=== PATIENT | male | born 1940 | race Caucasian/White ===

== ENCOUNTER → 2019-05-13 | Day surgery (SDC) | payer MEDICARE ==
[~2019-05-13] MED LIST: ACETAMINOPHEN 1000 MG/100 ML IV ONE; BACITRACIN 50,000 UNIT VIAL ONE; CEFTRIAXONE SOD 1 GM/NS 50 ML 50 ML IV ONE; DEXAMETHASONE SOD PHOS INJ 4 MG/ML VIAL ONE; EPHEDRINE SULFATE INJ 50 MG/10 ML SYR ONE; FENTANYL CITRATE/PF 100MCG/2 ML INJ ONE; LIDOCAINE HCL 1% LOCAL INJ 20 ML VIAL ONE; LIDOCAINE HCL 2% LOCAL INJ 5 ML SDV VIAL INJ ONE; LISINOPRIL10 MG PO; MULTIVITAMINS1 EAC8 PO; ONDANSETRON HCL INJ 2MG/ML 2ML 2 MG/ML VIAL ONE; PROPOFOL IV EMULSION 10 MG/ML 20 ML VIAL ONE; SEVOFLURANE INHAL SOLN 250 ML PEN BTL ONE
[2019-05-13 12:55] VITALS: BP 148/78
--- NOTE | 2019-05-14 11:11 | Operative Report ---
DATE OF PROCEDURE: 05/13/2019 SURGEON: Juan Antonio Sims MD PREOPERATIVE DIAGNOSIS: Organic erectile dysfunction. POSTOPERATIVE DIAGNOSIS: Organic erectile dysfunction. OPERATIVE PROCEDURE PERFORMED: Placement of inflatable penile prosthesis. ANESTHESIA: General anesthesia. ESTIMATED BLOOD LOSS: Minimal. INDICATIONS: Mr. Juan Stovall is a 79-year-old gentleman with a long history of erectile dysfunction, which has failed all conservative measures. He now presents for definitive surgical management of his problem. PROCEDURE IN DETAIL: The patient was brought in the operating room, placed in supine position. After administration of general anesthesia, he was prepped and draped in usual sterile fashion. A Hernandez catheter was placed and the balloon inflated. After the bladder was drained, the catheter was clamped for the remainder of the procedure. A penoscrotal incision was made in the midline and dissection was carried out to the cavernosal body. Great care was taken to avoid injury to the urethra. First the cavernosal body on the left side was encountered and incised in the midline and PDS stay sutures were placed on both sides. The corporal body was then dilated proximally and distally and measured 23 cm in total length. A similar procedure was performed on the patient's right side. In the process of the dissection, an incision approximately 2.5 cm in length was made in the skin along the right penoscrotal region. This was then closed in layers internally and then externally with interrupted nylon sutures. The corporal body was then incised again after PDS stitches were placed and dilated proximally and distally. This measured 22.5 cm on this side. A decision was made to place a 21 cm CX cylinder with 2 cm RTE on both sides. This was placed in the standard fashion. A Jameson needle was used to bring the distal end of the prosthesis to the distal most portion of the penis. It appeared to be a good fit. The stay sutures were then closed in a horizontal manner and a subdartos pocket was created in the scrotum to the right of midline. The pump was placed in this position such that the button was anteriorly placed. All the components were copiously irrigated with antibiotic saline prior to placement. A horizontal incision was then made in the region of the right groin and dissection was carried down to the layers of the fascia. The skin and soft tissues were copiously irrigated and infiltrated with 1% lidocaine. An incision was made in the fascia and a subcu rectus pocket was created. A 65 mL reservoir was placed in this location and filled with saline in the standard fashion. The tubing was allowed to come from a separate stab incision inferior to the fascial incision. The fascial incision was then closed using a running Vicryl suture. A pocket was then made from the right groin down to the right scrotum and this was used to bring the tubing from the pump superiorly. The tube from the reservoir and the tubing from the pump were then closed. We then connected using the quick connect method in the groin. The device was cycled on the field and noted to function adequately. Again, after copious irrigation, using antibiotic saline, the wounds were both closed in layers. The skin being closed with a subcuticular Monocryl stitch on both sides in both aspects. The wound was then cleaned and dried and covered with Mastisol, Steri-Strips, and a Tegaderm dressing. Anesthesia was reversed and the patient was transferred to a bed and taken to the postanesthesia care unit in good condition. Of note, the needle and instrument count were correct at the conclusion of the case. MD ROLANDO Burnett/YVETTE /[id number]
== END | disposition home or self-care (01) ==
LOC: OR 06:44
PROVIDERS: ATTEND Urology
DX: N52.8 Other male erectile dysfunction (principal); I10 Essential (primary) hypertension; M54.9 Dorsalgia, unspecified; R00.1 Bradycardia, unspecified; Z88.6 Allergy status to analgesic agent
CPT/HCPCS: 54405; C1813 ×2; J0131; J0696; J1100; J2001 ×2; J2405; J2704; J3010